=== PATIENT | female | born 1940 | race Caucasian/White ===

== ENCOUNTER → 2019-08-09 13:37 | Outpatient (CLI) | payer OTHER, SELFPAY ==
--- NOTE | 2019-08-09 | DI.MRI.S_ITS ---
PROCEDURE: MR KNEE LT WO CON INDICATIONS: Pain in left knee TECHNIQUE: Noncontrast sagittal PD fast spin echo and T2 fast spin echo with fat saturation, sagittal 3-D FLASH with fat saturation; coronal T1 spin echo and PD fast spin echo with fat saturation, and axial PD fast spin echo with fat saturation through the knee. COMPARISON: [facility] [place], CR, XR KNEE ARTHRITIC SERIES LT, 07/27/2019, 15:29. FINDINGS: Image quality: Excellent. Menisci: Medial extrusion of the medial meniscus. Amorphous and linear high signal intensity within the anterior horn, body, and posterior horn medial meniscus is present, demonstrating superior and inferior articular surface extension, indicating multifocal complex tearing. Lateral meniscus is intact. Cruciate ligaments: The anterior and posterior cruciate ligaments appear intact. Moderate T2 signal alteration along the course of the anterior cruciate ligament is present. Medial structures: Small focus of high T2 signal intensity within the proximal medial collateral ligament at the femoral origin.. Visualized portions of the pes anserinus tendons appear normal. No abnormal bursal fluid. Lateral structures: The lateral collateral ligament, long and short heads of the biceps femoris tendon appear intact. The popliteus tendon appears normal. Iliotibial band appears normal. Anterior structures: The quadriceps and patellar tendons appear intact. Patellar alignment is normal. No femoral trochlear dysplasia or ventral trochlear prominence. No edema in the infrapatellar fat pad. Bones and cartilage: No bone marrow contusions or fractures. Moderate tricompartmental periarticular osteophyte formation is present. Severe articular cartilage loss diffusely overlies the weightbearing aspects of the medial femoral condyle and medial tibial plateau. Mild articular cartilage loss overlies the weightbearing aspects of the lateral femoral condyle and lateral tibial plateau. There is moderate articular cartilage loss overlies overlying the lateral patellar facet. Moderate to severe articular cartilage loss overlies the medial patellar apex. Joint space: There is a moderate knee joint effusion. Multiple intra-articular loose bodies are present, measuring less than 5 mm diameter. No Griffin's cyst. Normal appearing synovial plicae are incidentally noted. IMPRESSION: 1. Tricompartmental osteoarthritis with associated articular cartilage loss. 2. Myxoid degeneration of the anterior cruciate ligament. 3. Partial-thickness medial collateral ligament tear. 4. Multifocal complex tearing of the medial meniscus. 5. Knee joint effusion and intra-articular loose bodies. Dictated by: Jason Chandler M.D. on 08/09/2019 at 16:27 Approved by: Jason Chandler M.D. on 08/09/2019 at 16:31
== END ==
PROVIDERS: Referring Provider Orthopaedic Surgery; Visit Provider Orthopaedic Surgery
DX: M25.562 Pain in left knee (principal); M17.12 Unilateral primary osteoarthritis, left knee; S83.412A Sprain of medial collateral ligament of left knee, initial encounter; S83.232A Complex tear of medial meniscus, current injury, left knee, initial encounter; M25.462 Effusion, left knee
CPT/HCPCS: 73721

== ENCOUNTER → 2019-09-05 12:11 | Outpatient (CLI) | payer OTHER, SELFPAY ==
[2019-09-05 12:59] LABS: Add Manual Diff / Slide Review NO; Basophils Absolute Auto 0 /uL (0-100); Basophils Percent Auto 0.5 % (0-2); Eosinophils Absolute Auto 100 /uL (0-450); Eosinophils Percent Auto 0.7 % (2-4); Hematocrit 38.4 % (36-46); Hemoglobin 12.4 g/dL (12.0-16.0); Lymphocytes Absolute Auto 2300 /uL (1100-4500); Lymphocytes Percent Auto 28.6 % (25-40); Mean Corpuscular HGB Conc 32.2 % (30-36); Mean Corpuscular Hemoglobin 27.6 PG (26-34); Mean Corpuscular Volume 85.8 fL (80-100); Monocytes Absolute Auto 800 /uL (0-900); Monocytes Percent Auto 10.4 % (3-14); Neutrophils Absolute Auto 4800 /uL (1500-7000); Neutrophils Percent Auto 59.8 % (50-75); Platelet Count 221 X10^3/uL (150-400); Red Blood Cell Count 4.47 X10^6/uL (4.0-5.2); Red Cell Distribution Width 14.1 % (11.6-14.8)
[2019-09-05 13:02] LABS: Appearance Urine UA CLEAR; Bilirubin Urine UA NEGATIVE (NEGATIVE); Color Urine UA YELLOW; Glucose Urine UA NEGATIVE (Negative); Ketones Urine UA NEGATIVE (NEGATIVE); Leukocyte Esterase Urine UA NEGATIVE (NEGATIVE); Nitrite Urine UA NEGATIVE (Negative); Occult Blood Urine UA 1+ (Negative); Protein Urine UA NEGATIVE (Negative); Urobilinogen Urine UA 0.2 E.U./dL (0.2)
[2019-09-05 13:17] LABS: BUN Creatinine Ratio 26.5 (6-22); Blood Urea Nitrogen 18 mg/dL (7-17); Calcium 9.8 mg/dL (8.4-10.2); Carbon Dioxide 27 mmol/L (22-32); Chloride 105 mmol/L (98-107); Estimated Glomerular Filt Rate > 60.0 mL/min (>60); Glucose 98 mg/dL (80-110); HEMOLYSIS < 15 (0-50); Potassium 4.3 mmol/L (3.4-5.1); Sodium 140 mmol/L (137-145)
[2019-09-05 13:25] LABS: Hemoglobin A1C% w Est Avg Glu 6.1 % (4.0-6.0)
[2019-09-05 13:32] LABS: Bacteria Urine Few (2-10); Culture Indicated Urine Cult Not Indicated; RBC Urine 0-1/HPF (0-5/HPF); WBC Urine 0-1/HPF (0-5/HPF)
== END ==
PROVIDERS: PCP Family Medicine; Referring Provider Orthopaedic Surgery; Visit Provider Orthopaedic Surgery
DX: Z01.818 Encounter for other preprocedural examination (principal); Z01.812 Encounter for preprocedural laboratory examination; R73.9 Hyperglycemia, unspecified; N39.0 Urinary tract infection, site not specified
CPT/HCPCS: 36415; 80048; 81001; 83036; 85025; 93005

== ENCOUNTER → 2019-10-06 11:18 | Outpatient (CLI) | payer OTHER, SELFPAY ==
[2019-10-07 19:15] LABS: COVID19 Sendout Not Detected (Not Detect)
== END ==
PROVIDERS: PCP Internal Medicine; Visit Provider Nurse Practitioner
DX: Z11.59 Encounter for screening for other viral diseases (principal)
CPT/HCPCS: 87635

== ENCOUNTER 2019-10-09 11:33 | Day surgery (SDC) | payer OTHER, SELFPAY ==
[2019-09-18 08:58] VITALS: BMI 33.0
[2019-10-09] VITALS (16 sets, daily range): BP systolic 122–200; BP diastolic 55–103; PULSE 76–98; RESP 11–19; TEMP 36.1–36.7; O2SAT 95–99; BMI 33.5
--- NOTE | 2019-10-09 | DI.RAD.S_ITS ---
PROCEDURE: XR KNEE LT 1TO2V INDICATIONS: TOTAL LEFT KNEE TECHNIQUE: 2 view(s) of the knee acquired. COMPARISON: [facility], MR, MR KNEE LT WO CON, 08/09/2019, 13:58. [facility] [place], CR, XR BONE LENGTH SCANOGRAM, 07/27/2019, 16:08. [facility] ROSA MARIA Wise, XR KNEE ARTHRITIC SERIES LT, 07/27/2019, 15:29. FINDINGS: Bones: Patient is status post knee joint arthroplasty. Hardware components are in expected positions. Visualized bony structures are intact. Soft tissues: Overlying postoperative changes are noted. IMPRESSION: Normal postoperative examination. Dictated by: Ray Seymour M.D. on 10/09/2019 at 15:59 Approved by: Ray Seymour M.D. on 10/09/2019 at 16:00
[2019-10-09] MEDS: LACTATED RINGERS 1,000 ML 42 ML IV ×2 (12:04→14:40)
[2019-10-09] MEDS: VANCOMYCIN 1,000 MG/200 ML PIGGYBACK 200 MG IV (12:37)
--- NOTE | 2019-10-09 13:25 | PM.HP.1 ---
History of Present Illness History of Present Illness Date Patient Seen: 10/09/19 Time Patient Seen: 13:03 Chief complaint: Left Total Knee Arthroplasty *OPB* Narrative: Neetu notes ongoing severe left knee pain. She is admitted for left total knee arthroplasty. Her knee pain interferes with her activities of daily living and she has failed extensive conservative measures. Patient History Medical History Diabetic neuropathy (Acute) Easy bruisability (Acute) Fatty liver (Acute) HLD (hyperlipidemia) (Acute) Osteoarthritis (Acute) Pre-diabetes (Acute) Skin cancer (Acute) Surgical History History of arthroplasty of right knee (Acute 09/13/17) History of bilateral cataract extraction (Acute) History of hysterectomy (Acute) Hx of arthroscopy of left knee (Acute) Hx of arthroscopy of right knee (Acute) Hx of dilation and curettage (Acute) Hx of tonsillectomy (Acute) Family & Social History Social History: household members none Prior Living Arrangements House Safety & Behavioral: Feels Safe in Current Yes Environment Been Physically Hurt or No Threatened By a Person Suicidal Ideation Description None Suicide Plan Description No Plan Tobacco & Substance use: Smoking Status Never smoker alcohol intake current alcohol intake frequency a few times a month Substance Use Type does not use Meds Home Medications and Allergies Home Medications Medication Instructions Recorded Confirmed Type aspirin 81 mg PO DAILY 09/18/19 10/09/19 History gabapentin 300 - 600 mg PO BEDTIME 09/18/19 10/09/19 History latanoprost 1 drp EYE-BOTH BEDTIME 09/18/19 10/09/19 History simvastatin 40 mg PO BEDTIME 09/18/19 10/09/19 History Allergies Allergy/AdvReac Type Severity Reaction Status Date / Time niacin Allergy Severe Rash Verified 10/09/19 11:45 Review of Systems Review of Systems Narrative: No new symptoms denies recent chest pain shortness breath or difficulty. Exam Vital Signs (past 8 hours): - 10/09/19 12:06 Temperature 97.3 F L Pulse Rate 79 Respiratory Rate 16 Blood Pressure 179/73 H Pulse Oximetry 99 Oxygen Delivery Method Room Air Narrative Exam Narrative: HEENT is benign, lungs clear cor regular rate and rhythm, abdomen soft and benign, left knee severe pain with checked range of motion range of motion 0-125 degrees ongoing medial and patellofemoral compartment pain Assessment & Plan Assessment & Plan narrative: Severe left knee osteoarthritis. The plan is for left total knee arthroplasty. Her x-rays show evidence of significant left knee osteoarthritis. Procedure alternatives risks benefits and complications were discussed in detail.
--- NOTE | 2019-10-09 13:27 | PM.OP.1 ---
Operative Date/Time/Diagnoses Date of procedure: 10/09/19 Time of procedure: 13:50 Pre-op diagnosis: Severe left knee osteoarthritis Post-op diagnosis: same Procedure & Clinicians Procedure: Left total knee arthroplasty Same procedure as scheduled: Yes Indications: The patient has had progressively worsening left knee pain with radiographic changes consistent with arthritis. Non-operative management has failed and the patient has requested total knee replacement. The risks, benefits and alternatives to surgery were discussed with the patient prior to proceeding. Risks discussed included, but were not limited to, failure to relieve pain, stiffness, infection, nerve damage, deep venous thrombosis, pulmonary embolism, stroke, coma, heart attack, permanent paralysis and , as well as the potential need for eventual revision of the prosthetic. Surgeon: Nieves Ray Laborer Steel Handling: Cody Gunderson Anesthesia Type: Spinal Operative Notes Findings: Severe left knee osteoarthritis, good quality bone, good stability Closure Type: primary Specimen(s): none sent Prosthetic devices, grafts, tissues, transplants, or devices: [facility] 2 size 3 femur, size 2 tibia, +10 poly, 32 by 7.5 mm patella Applied: drain(s) Estimated Blood Loss (mL): 250 Blood products transfused: none Tourniquet time (min): 63 Procedure in detail: The patient was seen in the pre-operative area, where the patient identified the left knee as the operative site and this was marked with my initials. The patient received pre-operative antibiotics, and was taken to the operating room and placed on the operative table in the supine position. After satisfactory anesthesia, a digital marketing apprentice out was performed. The left leg was encircled with a tourniquet about the proximal thigh, and the leg was prepared from the toes to the tourniquet with ChloroPrep in the usual fashion and draped through sterile drapes. The leg was elevated and exsanguinated with Eschmark bandage and the tourniquet inflated to [250] mmHg pressure. The knee was approached through an approximately 18 cm incision centered over the patella and carried into the knee through a medial parapatellar arthrotomy. A portion of the medial and lateral meniscus was resected. Soft tissue was carefully mobilized around the patella the patella was measured with a caliper. Bone was resected from the patella and the patellar height was reconstituted with up an appropriate sized patellar component. The patella was oval and a cover was then placed on the patella. A small amount of additional medial and lateral meniscus was resected. The visionare guide fit well to the distal femur. It looked like an appropriate distal femoral cut and the cut was made without difficulty. The rotation was assessed and the appropriate size femoral guide was placed on the distal femur and finishing cuts were made. There is no evidence of notching. The anterior, posterior and chamfer cuts were then made. The posterior osteophytes and soft tissues were then removed. The posterior capsule was injected with part of a mixture of 60 ml 0.25% Marcaine mixed with 20 ml Exparel for post operative pain control. The remainder of this mixture was injected into the capsule and subcutaneous tissues during cement curing. The tibia was prepared and the visionaire guide fit well to the distal tibia. The rotation was assessed. The patient was placed in extension residual medial and lateral meniscus as well as any residual bone was carefully resected. [No] additional tibia was resected. Hemostasis was achieved especially posteriorly. Additional local was injected into the posterior capsule. The extension gap was assessed and additional releases for gap balancing were performed as necessary. It was checked with the gap remote encoding operations supervisor. The femoral component was trial was placed and the notch was finished. Trial tibial and femoral components were then placed and the knee placed through a range of motion. Range of motion was [0-125], with good stability throughout the range. The trials were then removed, and the tibia was finished. The bone was prepared with pulsatile lavage, and dried with a sponge. Cement was applied and the final prosthetics placed. Excess cement was removed during and after cement curing. A brief Betadine soak was performed. After confirming there was no extruded cement posteriorly, the final tibial insert was placed. The knee was copiously irrigated and the tourniquet deflated. Hemostasis was obtained with the Bovie. A drain was placed and brought out superolaterally. The capsule was closed with interrupted # 1 Vicryl suture. The subcutaneous layer was closed with barbed sutures, and the skin with a running 3-0 V-Lock suture and Surgical glue. An Aquacel Ag dressing was applied and the patient was taken to recovery having tolerated the procedure well. Complications: none Post-operative Condition: stable Disposition: Acute Care Plan for aftercare: The patient will be maintained on a standard total knee replacement protocol with weight bearing as tolerated. The patient will receive aspirin and sequential compression devices for DVT prophylaxis. The patient will be discharged home when safe for the home environment.
[2019-10-09] MEDS: CEFAZOLIN 2 GM/100 ML FROZ.PIGGY IV ×2 (13:45→21:17)
[2019-10-09] MEDS: BUPIVACAINE 0.25% W/ EPI 30 ML VIAL 60 ML INJ (14:28)
[2019-10-09] MEDS: TRANEXAMIC ACID 1,000 MG VIAL 2000 MG INJ ×2 (14:29→15:25)
[2019-10-09] MEDS: BUPIVACAINE LIPOSOME 266 MG/20 ML VIAL INJ (14:29)
--- NOTE | 2019-10-09 14:30 | SUR.OPER ---
Supine on padded OR bed. Pillow under head, arms secured on padded armboards <90 degree abduction. Safety belt across torso. Non-operative leg secured with tape over blanket over lower leg. Operative leg secured in DeMayo/Vasiliy positioner. Foam padded brace at thigh of operative leg.
[2019-10-09] MEDS: OXYCODONE IR 5 MG TABLET PO ×2 (16:22→19:21)
--- NOTE | 2019-10-09 16:27 | SUR.PHASEI ---
Dr Higginbotham aware of BP. No new orders. Patient denies CP, sob.
[2019-10-09] MEDS: IBUPROFEN 400 MG TABLET PO ×2 (17:11→21:15)
[2019-10-09] MEDS: LACTATED RINGERS 1,000 ML 100 ML IV (18:01)
[2019-10-09] MEDS: SIMVASTATIN 40 MG TABLET PO (21:16)
[2019-10-09] MEDS: DOCUSATE 100 MG CAPSULE PO (21:16)
[2019-10-09] MEDS: GABAPENTIN 300 MG CAPSULE 600 MG PO (21:16)
[2019-10-09] MEDS: ACETAMINOPHEN 325 MG TABLET 650 MG PO (21:16)
[2019-10-09] MEDS: ASPIRIN EC 81 MG TABLET PO (21:16)
[2019-10-09] MEDS: LATANOPROST 0.005% OPHTH 2.5 ML 1 DROPS EYE-BOTH (21:17)
--- NOTE | 2019-10-10 00:40 | PC.NURSE ---
Patient seen and assessed at 2356. Is alert and oriented. Breath sounds CTA with RA sat of 96%. HRR. Denies nausea. BT present and abdomen is soft; denies flatus as yet. Is getting out of bed with walker and 1 assist and reports she is doing well and expects to discharge in a.m. Is voiding without problem; denies dysuria, frequency or urgency. Aquacel dressing covered with león wrap is CDI; hemovac is intact and compressed. CMS intact bilaterally. Wearing bilateral calf SCD's. Denies pain. Fall risk score is moderate and bed alarm is activated.
[2019-10-10] MEDS: IBUPROFEN 400 MG TABLET PO ×3 (01:08→08:30)
[2019-10-10] MEDS: LACTATED RINGERS 1,000 ML 100 ML IV (04:50)
[2019-10-10 05:32] VITALS: BP 136/63; PULSE 68; RESP 16; TEMP 36.7; O2SAT 98
[2019-10-10] MEDS: CEFAZOLIN 2 GM/100 ML FROZ.PIGGY IV (05:37)
[2019-10-10 06:37] LABS: Hematocrit 32.6 % (36-46); Hemoglobin 10.6 g/dL (12.0-16.0)
--- NOTE | 2019-10-10 07:37 | PM.PN.1 ---
Subjective Subjective Date Patient Seen: 10/10/19 Time Patient Seen: 07:37 Interval history: She notes that she is doing reasonably well overnight. She is out of been out of bed to urinate. Her pain is controlled with oral medications. Exam Vital Signs (past 8 hours): - 10/09/19 23:57 10/10/19 05:32 Temperature 98.1 F 98.1 F Pulse Rate 76 68 Respiratory Rate 16 16 Blood Pressure 122/55 L 136/63 Pulse Oximetry 96 98 Oxygen Delivery Method Room Air Oxygen Flow Rate 0 Narrative Exam Narrative: Her dressing is dry she can do an active straight leg raise her calfs are soft bilaterally she is neurologically intact distally and she has fairly mild pain with gentle range of motion in her knee Objective Labs Result Diagrams: 10/10/19 06:15 Labs: Laboratory Results - last 24 hr 10/10/19 06:15 Hgb 10.6 L Hct 32.6 L Assessment & Plan Assessment & Plan narrative: Doing well status post total knee arthroplasty. Plan okay to discharge to home in the afternoon as long as she is physical clear with physical therapy. She is going to follow up as an outpatient and do outpatient physical therapy. Quality VTE Deep Vein Thrombosis/Pulmonary Embolism Present on Admission: No
[2019-10-10 08:00] VITALS: BP 140/76; PULSE 66; RESP 17; TEMP 36.4; O2SAT 98
[2019-10-10] MEDS: ASPIRIN EC 81 MG TABLET PO (08:30)
[2019-10-10] MEDS: DOCUSATE 100 MG CAPSULE PO (08:30)
[2019-10-10] MEDS: ACETAMINOPHEN 325 MG TABLET 650 MG PO (08:30)
--- NOTE | 2019-10-10 10:29 | PC.NURSE ---
Pt's IV and drain both removed, pt tolerated well, pt denied any pain, pt given eye drops, and all belongings, nurse reviewed discharge instructions and return precautions, reviewed stroke protocol, reviewed med instructions and discharge paperwork signed by pt and pt was given hard copy Rx for pain med with instructions, pt dressed and wheeled to ER entrance by [employer] TEACHER to meet son for picking machine operator helper.
--- NOTE | 2019-10-10 10:34 | PT.IIE ---
Current Diagnoses Unilateral primary osteoarthritis, left knee (10/09/19) Rupture of popliteal cyst (10/09/19) Surgery Performed Operation Date: 10/09/19 13:45 Actual Procedures p Total Knee Arthroplasty(Left) - Nieves Ray MD Surgical History (Last Reviewed 10/09/19 @ 13:25 by Nieves Ray MD) History of arthroplasty of right knee (Acute 09/13/17) History of bilateral cataract extraction (Acute) History of hysterectomy (Acute) Hx of arthroscopy of left knee (Acute) Hx of arthroscopy of right knee (Acute) Hx of dilation and curettage (Acute) Hx of tonsillectomy (Acute) Medical History (Last Reviewed 10/09/19 @ 13:25 by Nieves Ray MD) Diabetic neuropathy (Acute) Easy bruisability (Acute) Fatty liver (Acute) HLD (hyperlipidemia) (Acute) Osteoarthritis (Acute) Pre-diabetes (Acute) Skin cancer (Acute) Physical Therapy Inpatient Evaluation/Re-Eval M1 PT/OT-IP Prior Functional Status Start: 10/10/19 08:13 Freq: NEEDED Status: Active Protocol: Document 10/10/19 10:19 (Rec: 10/10/19 10:34 [email or web address]) Medical Review Prior Functional Status Medical History Reviewed Yes Diet/Fluid Consistency Regular Communication no deficits noted. Able to make needs known Mobility and Gait independent at baseline without AD. difficulty in walking > 2 blocks or prolonged standing. Activities of Daily Living and IADL's independent at baseline for ADLs and IADLs without AD. Able to drive. Social History Household Members none Living Arrangements House Number of Floors (Floors) One Floor Number of Stairs To Enter/Railing? 2 PF steps without rails Home Environment High Toilet,Walk in Shower,Tub /Shower Home Equipment Front Wheel Walker,Crutches, Tub Transfer Bench,Hand Held Shower Employment Status Retired Additional Social History Comment Pt lives alone in [facility]. Pt states she sleeps in an adjustable bed so she usually get up from bed with elevated HOB d/t back pain. Pt had R TKA 2 years ago and it went well. Pt's son and dtr in law will come to stay with her to assist as long as she needed. M2 PT-IP Current Condition Start: 10/10/19 08:13 Freq: NEEDED Status: Active Protocol: Document 10/10/19 10:19 (Rec: 10/10/19 10:34 [email or web address]) Physical Therapy Current Condition Current Condition Evaluation Date 10/10/19 Treatment Diagnosis L TKA, difficulty in walking Onset Date 10/09/19 Weight Bearing Status Weight Bearing Status Weight Bear as Tolerated M3 PT-IP Subjective Start: 10/10/19 08:13 Freq: NEEDED Status: Active Protocol: Document 10/10/19 10:19 (Rec: 10/10/19 10:34 [email or web address]) Subjective Physical Therapy Visit Type Type Initial Evaluation Visit Start Time 08:50 Visit Stop Time 09:09 Total Visit Minutes 19 Notes hemovac and león wrap in place Number of COLORING MACHINE OPERATOR Visits 0 Physical Therapy Visit Comments Patient Comments This knee replacement is so much better than my right one Patient Goals To return home with his son's help Therapy Pain Assessment Pain When Pain Assessed During Mobility Pain Present Pain Present Pain Reported Location Left Knee Intensity 3 Scale Used Numeric (0 - 10) Description Aching Pain Management Techniques Timing of Activity with Medications M4 PT-IP Mobility and Gait Start: 10/10/19 08:13 Freq: NEEDED Status: Active Protocol: Document 10/10/19 10:19 (Rec: 10/10/19 10:34 [email or web address]) PT-Bed Mobility Assessment Supine to Sit Supine to Sit Standby Assistance,Head of Bed Elevated,Bedrails Scooting Scooting to Edge of Bed Standby Assistance PT-Transfer Assessment Sit to and From Stand Sit to and from Stand Standby Assistance,Use of Upper Extremities Equipment Transfer Assistive Device Gait Belt,Front Wheeled Walker Orthotic/Prosthetic Devices or Brace: No Transfers Transfer Destination Bed,Chair,Toilet Transfer Technique Stand Step Pivot Transfer Ability Level of Assist Standby Assistance,Use of Upper Extremities Comments Mobility Comments Pt was up in bed upon PT arrival. HOB elevated to 40 degrees and this is normal to pt since she has an adjustable bed at home to assist her back pain. Pt sat up and pivoted herself to L side with SBA using bed rails. She then stood up safely with FWW without compensation. Pt then walked with PT towards bathroom with step over pattern and she was able to safely transfer herself to toilet w SBA and grab bar on R side. Pt was able to stand up with FWW for pericare after. She then amb with PT SBA to hallway and completed half of the AC unit. Pt showed minimal antalgic step over gait pattern and she was very steady the whole time without any cueing. Pt then returned to room chair after completing PF step climbing. Call light placed within reach. Post op therex booklet provided. Gait Assessment Gait Gait Assistance Required: Standby Assistance Distance (Feet) 310 Able to Maintain Weight Bearing Status Yes During Gait Assistive Devices Assistive Device Gait Belt,Front Wheeled Walker Orthotic/Prosthetic Devices or Brace: No Gait Deviations General Gait Pattern Antalgic,Decreased Stride Length,Decreased Feet Clearance Factors Limiting Gait Function Factors Limiting Gait Function Decreased Activity Tolerance, Decreased Strength,Limited Range of Motion,Pain Comments Gait Comments check mobility comments. Stair Climbing Assessment Evaluation Level of Assist On Stairs Standby Assistance Devices Stair Climbing Assistive Devices Front Wheel Walker Technique/Endurance Stair Climbing Direction Ascend and Descend Stair Climbing Technique Step to Step Number of Steps Climbed 1 Query Text: Stair Climbing Set # Repetitions (reps) 3 Comments Stair Climbing Comments pt led with R to ascend and with L to descend safely. She did need min cue to keep herself close to step prior to place her FWW on PF step . PT-Balance Assessment Sitting Balance and Reactions Static Sitting Balance Ability Normal Dynamic Sitting Balance Ability Normal Standing Balance and Reactions Static Standing Balance Ability Normal Dynamic Standing Balance Ability Good Device Used FWW M5 PT-IP Objective Assessments Start: 10/10/19 08:13 Freq: NEEDED Status: Active Protocol: Document 10/10/19 10:19 (Rec: 10/10/19 10:34 [email or web address]) Orientation Orientation/Cognition Level of Alertness Alert Orientation Name,Age,Birthday,Month,Date, Year,Day of Week,Place, Situation Language Function Ability No Deficits Noted Safety Awareness Understands Safety Issues Memory Description No Deficits Noted Gross Range of Motion Upper Extremity ROM Assessment Within Functional Limits Lower Extremity ROM Assessment Bilaterally Impaired Impairments R knee flexion up to ~100 degrees L knee flexion up to 110 degrees. Strength Upper Extremity Strength Assessment Within Functional Limits Lower Extremity Strength Assessment Bilaterally Impaired Hip 4+/5 Knee 4/5 Ankle 5/5 Coordination Assessment Gross Coordination Gross Coordination WNL Sensation Assessment Sensation Gross Sensation WNL Muscle Tone Muscle Tone WNL Yes M6 PT-IP Treatment Start: 10/10/19 08:13 Freq: NEEDED Status: Active Protocol: Document 10/10/19 10:19 (Rec: 10/10/19 10:34 [email or web address]) Physical Therapy Treatment Exercises Exercises Ankle Pumps,Gluteal Sets,Quad Sets,Heel Slides Education Education Provided Precautions,Weight Bearing Status,Post-Op Packet,Safety M7 PT-IP Assessment and Plan Start: 10/10/19 08:13 Freq: NEEDED Status: Active Protocol: Document 10/10/19 10:19 (Rec: 10/10/19 10:34 [email or web address]) PT Summary Assessment and Plan Potential Rehabilitation Potential Excellent Status of Condition at Evaluation Stable Summary Impairments Pain,ROM,Strength,Balance,Bed Mobility,Transfers,Gait, Activity Tolerance Progress Towards Goals Safe For Discharge Assessment Summary This is a low complexity evaluation for this 79yo female s/p POD1 L TKA. Pt was completely independent without using AD who also lives alone . Upon assessment, pt did very well and completed toilet transfer, step climbing, ambulation with FWW and SBA with minimal discomfort. Pt will have son and dtr in law to stay to assist as long as she needed. She is currently safe to be d/c home with outpt PT to improve her functional mobility and strength. Frequency of Treatment Frequency Of Treatment Discharge Recommendations To Nursing Amount of Assist Needed Standby Assistance Discharge Recommendations PT Discharge Recommendations Home with Assistance, Outpatient PT Transportation Needs at Discharge Private Vehicle
== END 2019-10-10 10:58 | disposition home or self-care (01) ==
LOC: OR 11:34 → AC 11:36
PROVIDERS: PCP Family Medicine; Referring Provider Family Medicine; Visit Provider Orthopaedic Surgery
PROC: 0SRD0JZ Replacement of Left Knee Joint with Synthetic Substitute, Open Approach (ICD-10-PCS; CPT 27447; principal; 2019-10-09 13:45)
DX: M17.12 Unilateral primary osteoarthritis, left knee (principal); E78.5 Hyperlipidemia, unspecified; K76.0 Fatty (change of) liver, not elsewhere classified; E11.40 Type 2 diabetes mellitus with diabetic neuropathy, unspecified
CPT/HCPCS: 27447; 36415; 73560; 85014; 85018; 97161; C1776; C9290; J0690; J1170; J2250; J2704; J3010